=== PATIENT | male | born 1955 | race African-American/Black ===

== ENCOUNTER 2019-09-11 15:58 | Inpatient (IN) | payer MEDICAID ==
[~2019-09-11] VITALS: Ht 182.9 cm; Wt 71.4 kg
[2019-09-11] MEDS ORDERED: NEURONTIN 300300 MG PO (16:02)
[2019-09-11 17:18] LABS: BASOPHILS 0 % (0-2); EOSINOPHILS 1.3 % (0-7); HEMATOCRIT 24.4 % (42.0-54.0); IMMATURE GRANULOCYTES 0.3 % (0-5); LYMPHOCYTES 13.4 % (15-50); MCH 26.3 pg (26.0-34.0); MCHC 29.5 g/dL (31.0-37.0); MCV 89.1 fL (80.0-100.0); MONOCYTES 10.7 % (2-11); NEUTROPHILS 74.3 % (40-80); PLATELET COUNT 87 10x3/uL (130-400); RBC 2.74 10x6/uL (4.20-6.10); RDW 22.8 % (11.5-14.5)
[2019-09-11 17:40] LABS: ANION GAP 8.1 mmol/L (8-16); CALCIUM 7.4 mg/dL (8.5-10.1); CREATININE - SERUM 1.3 mg/dL (0.6-1.3); POTASSIUM - SERUM 4.1 mmol/L (3.5-5.1)
[2019-09-11 17:47] LABS: ALBUMIN 1.6 g/dL (3.4-5.0); BILIRUBIN - TOTAL 1.19 mg/dL (0.2-1.3); PROTEIN - SERUM 7.6 g/dL (6.4-8.2)
[2019-09-11 17:55] LABS: HEMOGLOBIN 7.2 g/dL (13.5-17.5)
--- NOTE | 2019-09-11 18:19 | NUR ---
RECEIVED CALL FROM ROMEL CLEMENTS IN ER, TOOK REPORT, PT HAS RT KNEE THAT IS SWOLLEN, 50ML TAKEN FROM KNEE AT [facility] BEFORE TRANSFERRED TO [facility]. PT WAS GIVEN 4MG OF MORPHINE IN ER, NO PAIN MEDS ORDERED FOR FLOOR, ASKED RN TO HAVE MEDS ORDERED FOR PAIN CONTROL BEFORE PT ARRIVES. PT HAS MIDLINE IN RT UPPER ARM PLACED BY [facility]. ASSUME PT CARE.
--- NOTE | 2019-09-11 18:41 | NUR ---
BLOOD NOT READY WHILE PT IN ED
[2019-09-11 18:51] LABS: PLATELET ESTIMATE DECREASED
--- NOTE | 2019-09-11 19:12 | NUR ---
TELEPHONE ORDER TO TRANSFUSE [address] BAH.
--- NOTE | 2019-09-11 22:03 | NUR ---
PT MIDLINE WILL NOT FLUSH OR GET BLOOD RETURN ATTEMPTED TO RESTICK PT FOR BLOOD TRANSFUSION PT JERKED BOTH TIMES FOR MYSELF AND RN WHO TRIED TO RESITE IV THEN PT STATED WE ARE NOT STICKING HIM AGAIN. TOOK BLOOD BACK TO LAB AND WILL CONSULT VASCULAR ACCCESS NURSE
--- NOTE | 2019-09-11 22:45 | NUR ---
PT LYING IN BED WITH EYES CLOSED, EASILY AWAKENED. ASKED PT IF I CAN TRY TO RESITE HIS IV AGAIN IN WHICH HE DECLINED. REMINDED PT THAT THIS IS HOW HIS PAIN MEDICATION IS ADMINISTERED. PT THEN STATED MIDLINE IS WORKING FINE AND HAS BEEN WORKING UNTIL HE GOT TO FLOOR. EXPLAINED TO PT THAT I WAS TOLD IN REPORT IV IS POSITIONAL AND AFTER ABX HAD GONE IN IV FINALLY QUIT WORKING. PT CONTINUED TO ARGUE, UNABLE TO CONVINCE PT OF IV ACCESS NEEDED. CONTINUE WITH PLAN OF CARE
[2019-09-12] VITALS: BP 110/68
--- NOTE | 2019-09-12 01:08 | NUR ---
I have reviewed this patient and I concur with the Shift Assessment completed by the Licensed Practical Nurse today this shift.
--- NOTE | 2019-09-12 01:15 | NUR ---
PT REQUESTING A CUP OF COFFEE. I EXPLAINED THAT PER ER DR NOTE THAT HE IS NPO AFTER MIDNIGHT FOR POSSIBLE SURGERY THIS AM WITH DR WEST. PT STATES HE WILL NOT BE HAVING SURGERY TODAY EVEN IF COMES IN TO SPEAK WITH HIM ABOUT IT AND INSISTING THAT I GIVE HIM A CUP OF COFFEE. I EXPLAINED THE IMPORTANCE OF THE POSSIBLE SURGERY AND NOTE. PT STATED THAT HE UNDERSTANDS BUT HE WILL NOT BE HAVING SURGERY TODAY. GAVE PT A CUP OF COFFEE. PT ASKING NOW FOR PAIN MEDICATION. I EXPLAINED THAT I WOULD HAVE TO START AN IV DUE TO HIS MIDLINE NOT WORKING. HE STATED I CAN TRY ONCE AND THAT IS IT. WILL ATTEMPT IV AND FALLOW UP.
--- NOTE | 2019-09-12 02:35 | NUR ---
IV RESTARTED RT FA 22G. WILL START BLOOD AND CLOSELY MONITOR.
--- NOTE | 2019-09-12 03:03 | NUR ---
ONE UNIT OF PRBC STARTED. PT STABLE. VITALS STABLE. WILL MONITOR CLOSELY AND FALLOW UP. CALL LIGHT IN REACH. BED LOWERED AND LOCKED. BED RAILS UPX2.
--- NOTE | 2019-09-12 03:30 | NUR ---
IV INFULTRATED. ATTEMPTED X5 TIMES. TO RESTART IV. WILL WAIT FOR VASCULAR ACCESS NURSE. WILL FALLOW UP.
[2019-09-12 05:05] VITALS: BP 100/58; BMI 21.3
[2019-09-12 08:30] VITALS: BP 130/57
--- NOTE | 2019-09-12 09:20 | NUR ---
PT BECAME UPSET AFTER HE ASKED FOR PAIN MEDICATION AND I WAS DRAWING UP 0.5 OF ORDERED PAIN MEDICATION PT STATED THAT WAS NOT ENOUGH AND IT WOULD NOT HELP WITH HIS PAIN. EXPLAINED OT PT THAT IS ALL I HAVE ORDERED AT THIS TIME AND PT STATED HE WANTED TO SPEAK TO THE DOCTOR TO GET MORE. ADVISED HIM SHAMAR JOVEL WAS IN THIS MORNING AND HOSPITALIST SHOULD BE ,AKING ROUNDS SOON. PT THEN STATED HE WANTED TO LEAVE THAT WE WERE NOT DOING ANYTHING FOR HIM. ADVISED PT TO LET ABX FINISH AND TALK TO DOCOTR FIRST BEFORE MAKING ANY DECISIONS. CL IN REACH CONTINUE WITH PLAN OF CARE
--- NOTE | 2019-09-12 09:47 | NUR ---
PT REFUSED TO LET LAB DRAW ANY BLOOD. PT IS SO FAR BEING NON COMPLIANT WILL TRY AND ADMINISTER BLOOD ORDERED FROM YESTERDAY. CONTINUE WITH PLAN OF CARE
[2019-09-12 11:10] VITALS: Ht 182.9 cm; Wt 71.4 kg
--- NOTE | 2019-09-12 11:52 | NUR ---
PT REFUSED LAB WORK AGAIN, CALLED SHAMAR NURSE PRACTITIONER AND RELAYED MESSAGE, RECEIVED CALL FROM MRI AT [facility] TIME AND WAS ADVISED PT HAS A BULLET IN THE AREA AND ARE UNABLE TO FOLLOW THROUGH. TOLD NURSE PRACTIONER ABOUT PT WANTING PAIN MEDICATION INCREASED BUT REFUSING LAB WORK AND IV'S WELL GOING TO SURGERY. SPOKE TO MED ALVAREZ ABOUT IT AND WAS TOLD TO INCREASE PT PAIN MEDICATION TO 1MG. SPOKE TO SHAMAR AGAIN AND WAS ADVISED NOT TO INCREASE MEDS. CONTINUE WITH PLAN OF CARE
--- NOTE | 2019-09-12 12:06 | NUR ---
PATIENT BANGING ON BED STATING HE WANTS HIS BLOOD. ADVISED PT THAT PER NOTES HIS BLOOD WAS ADMNISTERED ABOUT 2AM PT STATED HIS IV INFILTRATED AND THAT HE DID NOT RECEIVE BLOOD LAST NIGHT SO I TOLD PT THAT IF HE ALLOWED LAB TO DRAW HIS BLOOD SO I CAN SEE WHERE HIS LEVELS ARE THEN I WOULD BE MORE THAN HAPPY TO ADMINISTER ANOTHER UNIT OF BLOOD. PT THEN STATED HE WANTED DOCUMENTS FROM LAST NIGHT WHERE HIS BLOOD WAS DRAWN. ADVISED HIM HE WILL GET ALL DOCUMENTS UPON DC. CONTINUE WITH PLAN OF CARE
--- NOTE | 2019-09-12 12:06 | NUR ---
PT HAD BULLET IN R KNEE. PER DR NATION HE DOESN'T FEEL COMFORTABLE WITH US DOING AN MRI ON HIM. SHAMAR YOUNG NOTIFIED WELL PATIENT'S NURSE CHUCK. EXAM CANCELLED
--- NOTE | 2019-09-12 12:36 | NUR ---
DIXIE WITH LAB CAME TO DRAW LABS PT REFUSED AFTER TALKING TO PT FOR A BIT PT ALLOWED DIXIE ONE TRY, HE WAS UNSUCCESSFUL AND SENT CAROL FROM LAB. PT GOT UPSET AND TOLD MYSELF AND MERCURY WASHER WE CAN GO DRINK HIS URINE. CAROL WAS ABLE TO OBTAIN BLOOD. CONTINUE WITH PLAN OF CARE
[2019-09-12 13:06] LABS: BASOPHILS 0 % (0-2); EOSINOPHILS 1.1 % (0-7); HEMATOCRIT 22.9 % (42.0-54.0); LYMPHOCYTES 12.7 % (15-50); MCH 26.3 pg (26.0-34.0); MCHC 29.3 g/dL (31.0-37.0); MCV 89.8 fL (80.0-100.0); MONOCYTES 9.1 % (2-11); NEUTROPHILS 77.1 % (40-80); RBC 2.55 10x6/uL (4.20-6.10); RDW 22.5 % (11.5-14.5); WBC 2.8 10x3/uL (4.8-10.8)
[2019-09-12 13:13] LABS: HEMOGLOBIN 6.7 g/dL (13.5-17.5); PLATELET COUNT 49 10x3/uL (130-400)
[2019-09-12 13:19] LABS: % SATURATION 14 % (15-55); IRON 21 ug/dl (35-150); TOTAL IRON BIND CAPACITY 145 ug/dl (260-445); UNSAT IRON BIND CAPACITY 124 ug/dl (150-375)
[2019-09-12 13:23] VITALS: BP 96/63
[2019-09-12 13:23] LABS: ALBUMIN 1.7 g/dL (3.4-5.0); ANION GAP 8.8 mmol/L (8-16); BILIRUBIN - TOTAL 1.22 mg/dL (0.2-1.3); C-REACTIVE PROTEIN 8.7 mg/dL (0.0-0.9); CALCIUM 7.3 mg/dL (8.5-10.1); CARBON DIOXIDE 25.6 mmol/L (21.0-32.0); CREATININE - SERUM 1.1 mg/dL (0.6-1.3); POTASSIUM - SERUM 4.4 mmol/L (3.5-5.1); PROTEIN - SERUM 7.3 g/dL (6.4-8.2)
[2019-09-12 13:30] LABS: PLATELET ESTIMATE DECREASED
--- NOTE | 2019-09-12 13:33 | NUR ---
ADMINISTERED PT PAIN MEDICATION PT STATED I HAD NOT GIVEN HIM PAIN MEDICATION AND THAT I WAS A LIAR. STATED HE WANTED TO TALK TO THE DOCTOR AND THAT I HAD NOT GIVEN HIM ANY PAIN MEDICATION TOO EARLY TO GIVE HIM ANYTHING ELSE. WILL NOT READMINISTER PAIN MEDS TO MAKE HIM HAPPY. PT TO HAVE 2 UNITS OF BLOOD HGB IS 6.7 AND PLATELETS IS 49
[2019-09-12 13:46] LABS: MAGNESIUM - SERUM 1.9 mg/dL (1.8-2.4)
[2019-09-12 13:56] LABS: ERYTHROCYTE SEDIMENTATION RATE 56 mm/hr (0-20)
--- NOTE | 2019-09-12 14:10 | NUR ---
WENT OT START PT BLOOD AND PT IV LEAKED EVERYWHERE. PT STARTYED CURSING AT ME AGAIN AND TELLING ME IM AN INCOMPETENT NURSE. APOLOGIZED TO PT AND EXPLAINED THAT THIS DOES HAPPEN FROM TIME TO TIME, CALLED AND LEFT MESSAGE FOR VASCULAR ACCESS NURSE. CONTINUE WITH PLAN OF CARE
[2019-09-12 14:44] LABS: UDS - AMPHET NEGATIVE QUAL (NEGATIVE); UDS - BARB NEGATIVE QUAL (NEGATIVE); UDS - BENZO NEGATIVE QUAL (NEGATIVE); UDS - COCAINE NEGATIVE QUAL (NEGATIVE); UDS - OPIATE POSITIVE QUAL (NEGATIVE); UDS - PCP NEGATIVE QUAL (NEGATIVE); UDS - THC NEGATIVE QUAL (NEGATIVE)
[2019-09-12 14:54] LABS: BILIRUBIN NEGATIVE (NEGATIVE); GLUCOSE NEGATIVE (NEGATIVE); KETONE NEGATIVE (NEGATIVE); NITRITE NEGATIVE (NEGATIVE); UROBILINOGEN NORMAL (NORMAL)
--- NOTE | 2019-09-12 15:02 | NUR ---
PT HAS IV ACCESS IN RT FA OBTAINED BY VASCULAR ACCESS NURSE. PT BLOOD RESTARTED CONTINUE WITH PLAN OF CARE
[2019-09-12 17:17] LABS: INR 1.62 (0.85-1.17)
--- NOTE | 2019-09-12 18:41 | NUR ---
PER DR VARNER ADMINISTER 1TIME DOSE OF LACTULOSE NOW, PT STATED HE WAS NOT TAKING MEDICAINE UNTIL HE WAS GIVEN PAIN MEDICATION. PAUSED BLOOD AND FLUSHED WITH SALINE THEN ADMINISTERED PRN PAIN MEDICATION THEN RESTARTED BLOOD. CONTINUE WITH PLAN OF CARE
[2019-09-12 20:00] VITALS: BP 127/68
--- NOTE | 2019-09-12 20:00 | NUR ---
ALERT RESTING IN BED BLOOD INFUSING WITHOUT DIFFICULTY, DENIES NEEDS AT THIS TIME, SEE SHIFT ASSESSMENT CALL LIGHT IN REACH
[2019-09-13] VITALS: BP 119/66
--- NOTE | 2019-09-13 01:45 | NUR ---
REQUESTING PAIN MEDICATION, INFORMED HAD JUST HAD IT AT 1145 AND WAS EVERY 4 HRS, PT BECAME CHERYL AGITATES STATING THAT DR SAID HE WAS GOING TO INCREASE MY PAIN MEDICATION AND YOU DIDNT GIVE ME ENOUGH. INFORMED THAT THERE WAS NO ORDER FOR ANY CHANGE IN PAIN MEDICATION AND I WOULD GIVE HIS MEDICATION SOON I COULD. DEMANDING THE DR BE CALLED TO GET HIS PAIN MEDICATION INCREASED. DR BRETT NAJERA
--- NOTE | 2019-09-13 02:41 | NUR ---
CALL BACK RECIEVED FROM DR WEST, STATES NO INCREASE IN PAIN MEDICATIONS BECAUSE HE KEEPS REFUSING LABS MRI AND US.
[2019-09-13 04:00] VITALS: BP 116/59
--- NOTE | 2019-09-13 07:59 | NUR ---
ALERT AND ORIENTED. LUNGS CLEAR BILATERALLY. HEART SOUNDS S1 AND S2 HEARD IN ALL RANGEL. SKIN INTACT WITHOUT REDNESS. RIGHT KNEE SWOLLEN. WARM PACK PLACED ON KNEE PER REQUEST. PRN PAIN MEDICATION GIVEN PER REQUEST. DENIES FURTHER NEEDS. BED LOW. CALL MANCIA AND PERSONAL ITEMS IN REACH. WILL CONTINUE TO MONITOR.
[2019-09-13 08:09] VITALS: BP 114/58
--- NOTE | 2019-09-13 08:27 | NUR ---
PATIENT PREVIOUSLY REFUSED AM LABS BUT STATES HE WILL GET THEM NOW. LAB CALLED AND STATES WILL COME DRAW LABS. PATIENT REQUESTING TO EAT. NPO FOR US OF ABD TODAY. STATES WILL GET US TOMORROW. ALREADY REFUSED US YESTERDAY. MED HAYES NOTIFIED. STATES "KEEP HIM NPO FOR NOW." PATIENT INFORMED. UNHAPPY BUT WILLING TO COOPERATE FOR TIME BEING.
--- NOTE | 2019-09-13 08:57 | NUR ---
PATIENT STATES "I WANT TO GO BACK WHERE I CAME FROM. Y'ALL ARE GIVING ME THE RUN AROUND." EXPLAINED TO PATIENT THAT HE IS HAVING US TODAY AND THAT IS REASON FOR NPO STATUS. STATES AGAIN THAT WANTS TO HAVE US TOMORROW. ALSO EXPLAINED TO PATIENT THAT IS HAVING PROCEDURE TOMORROW. PATIENT CONTINUES TO STATE WE ARE GIVING HIM "THE RUN AROUND." AND THAT HE WANTS TO LEAVE. WILL NOTIFY MED HAYES.
[2019-09-13 09:04] LABS: MCH 26.3 pg (26.0-34.0); RDW 22.1 % (11.5-14.5); WBC 2.6 10x3/uL (4.8-10.8)
[2019-09-13 09:08] LABS: ALBUMIN 1.8 g/dL (3.4-5.0); ALKALINE PHOSPHATASE 118 U/L (30-120); ALT (SGPT) 18 U/L (10-68); BILIRUBIN - TOTAL 2.73 mg/dL (0.2-1.3); CALC OSMOLALITY 276 mosm/kg (275-300); CALCIUM 7.6 mg/dL (8.5-10.1); CARBON DIOXIDE 25.8 mmol/L (21.0-32.0); CHLORIDE - SERUM 108 mmol/L (98-107); CREATININE - SERUM 0.9 mg/dL (0.6-1.3); GLUCOSE 88 mg/dL (74-106); POTASSIUM - SERUM 4.5 mmol/L (3.5-5.1); PROTEIN - SERUM 8.1 g/dL (6.4-8.2); SODIUM 138 mmol/L (136-145); UREA NITROGEN 17 mg/dL (7-18); eGFR NON AFRICAN AMERICAN > 90 mL/min (90-120)
[2019-09-13 09:09] LABS: HEMATOCRIT 27.7 % (42.0-54.0); HEMOGLOBIN 8.3 g/dL (13.5-17.5); MCV 87.7 fL (80.0-100.0); PLATELET COUNT 79 10x3/uL (130-400); RBC 3.16 10x6/uL (4.20-6.10)
[2019-09-13 09:27] LABS: MAGNESIUM - SERUM 1.6 mg/dL (1.8-2.4)
--- NOTE | 2019-09-13 09:27 | NUR ---
SPOKE WITH MED HAYES TO NOTIFY THAT PATIENT WANTS TO LEAVE. STATES WILL TAKE CARE OF.
[2019-09-13 09:30] LABS: LYMPHOCYTES 11 % (15-50); MONOCYTES 1 % (2-11); NEUTROPHILS 88 % (40-80); PLATELET ESTIMATE DECREASED; SCHISTOCYTES OCC; TEAR DROP CELLS OCC
[2019-09-13 09:31] LABS: ROULEAUX OCC
--- NOTE | 2019-09-13 10:40 | NUR ---
PATIENT REFUSING TO SIGN CONSENTS FOR PROCEDURE TOMORROW UNTIL AFTER EATING. PATIENT NPO. PATIENT WITH INCREASED AGITATION. RAUL ALARM PLACED ON BED D/T FALL SCORE NOW AT THREE FOR NARCOTICS, WEAKNESS, AND AGITATION.
--- NOTE | 2019-09-13 10:54 | NUR ---
PATIENT NOW STATES WILL SIGN CONSENTS. CONSENTS OBTAINED FOR PROCEDURE TOMORROW. PATIENT REQUESTED TO CALL SISTER. SISTER CALLED TWICE WITH NO ANSWER.
--- NOTE | 2019-09-13 12:37 | NUR ---
SITTING IN BED EATING LUNCH. WILL CONTINUE TO MONITOR.
[2019-09-13 12:54] VITALS: BP 141/90
--- NOTE | 2019-09-13 13:21 | NUR ---
MED HAYES NOTIFIED OF AMMONIA [address] AND THAT PATIENT JUST RECEIVED 0900 DOSE LACTULOSE D/T NO LONGER NPO. STATES "OK THANK YOU."
--- NOTE | 2019-09-13 20:00 | NUR ---
ALERT RESTING IN BED, C/O PAIN TO RIGHT KNEE, DILAUDID ORDERED GIVEN, SEE ASSESSMENT, CALL LIGHT IN REACH
[2019-09-13 21:15] VITALS: BP 104/61
[2019-09-14] VITALS (11 sets, daily range): BP systolic 105–135; BP diastolic 51–80
--- NOTE | 2019-09-14 02:00 | NUR ---
SECURITY CALLED TO TALK WITH PT WHO IS YELLING AND BANGING CALL LIGHT ON SIDE OF BED AND WILL NOT LISTEN THIS NURSE ATTEMTS TO EXPLAIN THAT WE WILL GLADLY MEET HIS NEEDS BUT NURSE OR WEIGHT LOSS CONSULTANT CAN NOT BE IN ROOM ALL THE TIME
[2019-09-14 06:46] LABS: HEMATOCRIT 27.7 % (42.0-54.0); HEMOGLOBIN 8.4 g/dL (13.5-17.5); MCH 26.6 pg (26.0-34.0); MCHC 30.3 g/dL (31.0-37.0); MCV 87.7 fL (80.0-100.0); RBC 3.16 10x6/uL (4.20-6.10); RDW 21.7 % (11.5-14.5); WBC 2.8 10x3/uL (4.8-10.8)
[2019-09-14 06:55] LABS: PLATELET COUNT 101 10x3/uL (130-400)
[2019-09-14 06:57] LABS: ALBUMIN 1.7 g/dL (3.4-5.0); ALKALINE PHOSPHATASE 121 U/L (30-120); ALT (SGPT) 18 U/L (10-68); BILIRUBIN - TOTAL 1.56 mg/dL (0.2-1.3); CALC OSMOLALITY 273 mosm/kg (275-300); CALCIUM 7.5 mg/dL (8.5-10.1); CARBON DIOXIDE 27.4 mmol/L (21.0-32.0); CHLORIDE - SERUM 107 mmol/L (98-107); GLUCOSE 89 mg/dL (74-106); MAGNESIUM - SERUM 1.7 mg/dL (1.8-2.4); POTASSIUM - SERUM 4.2 mmol/L (3.5-5.1); SODIUM 137 mmol/L (136-145); UREA NITROGEN 16 mg/dL (7-18); eGFR NON AFRICAN AMERICAN 80 mL/min (90-120)
--- NOTE | 2019-09-14 07:39 | NUR ---
ALERT AND ORIENTED. LUNGS CLEAR BILATERALLY. HEART SOUNDS S1 AND S2 HEARD IN ALL RANGEL. BOWEL SOUNDS ACTIVE X 4. RIGHT KNEE SWOLLEN. SCHEDULED I/D RIGHT LEG TODAY. REQUESTED TO BE COVERED UP "PROPERLY." BED LINENS STRAIGHTENED PER REQUEST. REQUESTED SISTER TO BE CALLED. CALLED BUT NO ANSWER. BED LOW. CALL MANCIA AND PERSONAL ITEMS IN REACH. FALL PRECAUTIONS IN PLACE. WILL CONTINUE TO MONITOR.
[2019-09-14 07:54] LABS: BASOPHILS 2 % (0-2); LYMPHOCYTES 8 % (15-50); MONOCYTES 3 % (2-11); NEUTROPHILS 87 % (40-80); PLATELET ESTIMATE NORMAL; SCHISTOCYTES OCC; TEAR DROP CELLS OCC
--- NOTE | 2019-09-14 10:00 | NUR ---
PREOP MEDICATIONS GIVEN AND EKG PERFORMED PER ORDER. COPY ON CHART.
[2019-09-14 10:10] LABS: HEPATITIS C ANTIBODY >11.0 S/CO RAT (0.0-0.9)
--- NOTE | 2019-09-14 10:30 | NUR ---
PATIENT TAKEN FOR PROCEDURE.
--- NOTE | 2019-09-14 11:18 | MORECARE ---
CASE MANAGEMENT DISCHARGE SUMMARY PATIENT: MARLEY VALLADARES UNIT: [id number] ADM DATE: 09/11/19 AGE: 64 : 59 SEX: M ROOM/BED: D.2227 AUTHOR: ABIGAIL WATKINS PHYSICIAN: REFERRING PHYSICIAN: APURVA BAH MD DATE OF SERVICE: 09/14/19 Discharge Plan Patient Name: MARLEY VALLADARES [facility] [facility] 1955 Planned Disposition: [facility] Facility Anticipated Discharge Date: Discharge Date: Expected LOS: Initial Reviewer: [email or web address] Initial Review Date: 09/11/2019 Generated: 09/14/19 12:17 pm DCPIA - Discharge Planning Initial Assessment Updated by [id number]: Jamila August on 09/14/19 11:13 am * Is the patient Alert and Oriented? Yes * How many steps to enter\exit or inside your home? 3/0 * PCP No PCP * Pharmacy [facility] in [facility] * Preadmission Environment Home Alone * ADLs Independent * Equipment None * List name and contact numbers for known caregivers / representatives who currently or will assist patient after discharge: Aditi Alegre [facility] [phone] * Verbal permission to speak to the caregivers and representatives has been obtained from the patient. Yes * Community resources currently utilized None * Additional services required to return to the preadmission environment? No * Can the patient safely return to the preadmission environment? Yes * Has this patient been hospitalized within the prior 30 days at any hospital? Yes Patient Name: MARLEY VALLADARES Page [id number] at 1118 All edits/amendments must be made on the electronic document DICTATION DATE: 09/14/19 1117 SOCIOLOGY INSTRUCTOR: KIP 09/14/19 1117 RPT#: [id number] DC DATE: STATUS: ADM IN [facility] [address] [place] [address] END OF REPORT
--- NOTE | 2019-09-14 11:27 | MORECARE ---
CASE MANAGEMENT DISCHARGE SUMMARY PATIENT: MARLEY VALLADARES UNIT: [id number] ADM DATE: 09/11/19 AGE: 64 : 59 SEX: M ROOM/BED: D.2227 AUTHOR: ROLANDDOC PHYSICIAN: REFERRING PHYSICIAN: APURVA BAH MD DATE OF SERVICE: 09/14/19 Discharge Plan Patient Name: MARLEY VALLADARES Facility: [facility]:[place] : 1955 Planned Disposition: [facility] Facility Anticipated Discharge Date: Discharge Date: Expected LOS: Initial Reviewer: [email or web address] Initial Review Date: 09/11/2019 Generated: 09/14/19 12:26 pm Comments DCP- Discharge Planning Updated by [id number]: Jamila Auguts on 09/14/19 10:[address] Patient Name: MARLEY VALLADARES Admission Status: ER Accout number: [id number] Admission Date: 09-11-2019 : 1955 Admission Diagnosis: Attending: APURVA BAH Current LOS: 3 Anticipated DC Date: Planned Disposition: [facility] Discharge Planning Comments: CM met with patient to discuss discharge planning/needs. He was transferred from [facility]. He states that he was in [facility] for IV antibiotics after leaving the hospital last time and would like to return. He does have an aide that comes on weekend from [facility]. He does not have any equipment at home. I spoke with German at [facility] and German states the patient has [place] Medicaid and does not have any rehab benefits. States that they will be unable to take him back. States the hospital had paid them to take him for 3 weeks for IV antibiotics. States because of his prior history of drug abuse, they would not send him home with a PICC line. I attempted to call his sister, Aditi, several times today at [phone] and she did not answer and her mailbox is full so I was unable to leave a message. I do not see how he will be able to get home health without a PCP either. CM will continue to follow and assist with discharge planning/needs. Blockmason: Jamila August DCPIA - Discharge Planning Initial Assessment Updated by [email or web address]: Jamila August on 09/14/19 11:13 am * Is the patient Alert and Oriented? Yes * How many steps to enter\exit or inside your home? 3/0 * PCP No PCP * Pharmacy [facility] in [facility] * Preadmission Environment Home Alone * ADLs Independent * Equipment None * List name and contact numbers for known caregivers / representatives who currently or will assist patient after discharge: Aditi Alegre - [facility] [phone] * Verbal permission to speak to the caregivers and representatives has been obtained from the patient. Yes * Community resources currently utilized None * Additional services required to return to the preadmission environment? No * Can the patient safely return to the preadmission environment? Yes * Has this patient been hospitalized within the prior 30 days at any hospital? Yes Coverage Notice Reviewer: [email or web address] - Jamila August Notice Issued Date-Time: 09/14/2019 11:24 Notice Type: Patient Choice Letter Notice Delivered To: Patient Relationship to Patient: Self Gas Furnace Installer Name: Delivery Method: - Melanie Days: Prior Verbal Notification: Recipient Understood Notice: Recipient Signature: Med Rec Note Co-signed by Attending: Coverage Notice Comment: Last DP export: 09/14/19 10:18 a Patient Name: MARLEY VALLADARES Page [id number] at 1127 All edits/amendments must be made on the electronic document DICTATION DATE: 09/14/19 112 ASTROCHEMIST: KIP 09/14/19 1126 RPT#: [id number] DC DATE: STATUS: ADM IN [facility] [address] [place] [address] END OF REPORT
--- NOTE | 2019-09-14 11:58 | NUR ---
VERY POOR SKIN INTEGRITY NOTED TO LOWER EXTREMITIES. SKIN IS PEELING AND FLAKING. THERE IS A NOTEABLE AMOUNT OF SKIN FLAKES ON PT BEDDING.
--- NOTE | 2019-09-14 12:20 | NUR ---
PATIENT RETURNED FROM PROCEDURE. VITALS STABLE. PATIENT SLEEPING. WILL CONTINUE TO MONITOR.
--- NOTE | 2019-09-14 13:34 | NUR ---
RESTING IN BED. VITALS REMAIN STABLE. WILL CONTINUE TO MONITOR.
--- NOTE | 2019-09-14 14:53 | NUR ---
RESTING IN BED. VITALS REMAIN STABLE. WILL CONTINUE TO MONITOR.
--- NOTE | 2019-09-14 15:22 | MORECARE ---
CASE MANAGEMENT DISCHARGE SUMMARY PATIENT: MARLEY VALLADARES UNIT: [id number] ADM DATE: 09/11/19 AGE: 64 : 59 SEX: M ROOM/BED: D.2227 AUTHOR: ABIGAIL WATKINS PHYSICIAN: REFERRING PHYSICIAN: APURVA BAH MD DATE OF SERVICE: 09/14/19 Discharge Plan Patient Name: MARLEY VALLADARES Facility[facility]:[place] : 1955 Planned Disposition: Assisted Facility Anticipated Discharge Date: Discharge Date: Expected LOS: Initial Reviewer: [email or web address] Initial Review Date: 09/11/2019 Generated: 09/14/19 4:22 pm Comments DCP- Discharge Planning Updated by [email or web address]: Emilee Tracy on 09/14/19 2:[address] PATIENT WENT TO THE OR FOR ARTHROSCOPIC I&D OF THE RIGHT KNEE WITH WASHING. RETURNED AT 1220. CM TO THE BEDSIDE AT 1430. THE PATIENT GAVE PERMISSION TO PROCEED WITH ASSESSMENT. HE STATES HIS SISTER, ADITI, HAD JUST CALLED. CM CONFIRMED THE NUMBER WHICH HE STATES IS CORRECT ON THE FACE SHEET. GAVE PERMISSION TO SPEAK WITH HER. HE STATED HE HAD NO OTHER FAMILY. WHEN ASK HOW HE CAME TO BE IN [place], STATED HIS SISTER. BUT HAD STATED EARLIER HIS SISTER, ADITI, LIVED IN [place]. HE GAVE ANOTHER NAME, ?? EVANGELINA LAU. NOW STATES SHE LIVES IN [place]. HE WAS NOT A THEREFORE NO VA BENEFITS. HE WISHES TO RETURN TO THE PREVIOUS FACILITY. CM INFORMED HIM THEY DID NOT ACCEPT HIM HE HAS NO BENEFIT/ HAS UTILIZED ALL OF HIS MEDICAID DAYS. HIS ANSWERS ARE SLURRED. HE KEPT DRIFITING OFF DURING THE ASSESSMENT. THE PATIENT WAS ALSO MEDICATED W/ DILAUDID FOR PAIN DURING INTERVIEW. MD NOTE STATES PLAN FOR 6 WEEKS OF IVAB THERAPY. CM WILL NEED TO REVISIT. TELEPHONE CALL TO HIS SISTER, ADITI, AND RECEIVED AN ANSWER. SHE STATES SHE HAD SPOKEN WITH HIM. SHE CONFIRMS HE WAS NOT IN THE SERVICES. SHE STATES HE HAS A PRIMARY MD, DR BUCK, IN [facility]. SHE DOES NOT KNOW HIS NUMBER BUT STATES THE PATIENT HAS HIS CARD. PATIENT UTILIZES [facility] [facility] IN [place]. THE SISTER STATES THEY HAVE A HOME IN [place] AND HE BECAME ILL WHILE THEY WERE VISITING. CM TO FOLLOW. DCP- Discharge Planning Updated by [id number]: Jamila August on 09/14/19 10:[address] Patient Name: MARLEY VALLADARES Admission Status: ER Accout number: [id number] Admission Date: 09-11-2019 : 1955 Admission Diagnosis: Attending: APURVA BAH Current LOS: 3 Anticipated DC Date: Planned Disposition: Assisted Facility Primary Insurance: [employer] Discharge Planning Comments: CM met with patient to discuss discharge planning/needs. He was transferred from [facility]. He states that [facility] for IV antibiotics after leaving the hospital last time and would like to return. He does have an aide that comes on weekend from [facility]. He does not have any equipment at home. I spoke with German at [facility] and German states the patient has [place] Medicaid and does not have any rehab benefits. States that they will be unable to take him back. States the hospital had paid them to take him for 3 weeks for IV antibiotics. States because of his prior history of drug abuse, they would not send him home with a PICC line. I attempted to call his sister, Aditi, several times today at [phone] and she did not answer and her mailbox is full so I was unable to leave a message. I do not see how he will be able to get home health without a PCP either. CM will continue to follow and assist with discharge planning/needs. Vinyl Installer: Jamila Mata DCPIA - Discharge Planning Initial Assessment Updated by [id number]: Jamila August on 09/14/19 11:13 am * Is the patient Alert and Oriented? Yes * How many steps to enter\exit or inside your home? 3/0 * PCP No PCP * Pharmacy [facility] in [facility] * Preadmission Environment Home Alone * ADLs Independent * Equipment None * List name and contact numbers for known caregivers / representatives who currently or will assist patient after discharge: Aditi Alegre - sister - [phone] * Verbal permission to speak to the caregivers and representatives has been obtained from the patient. Yes * Community resources currently utilized None * Additional services required to return to the preadmission environment? No * Can the patient safely return to the preadmission environment? Yes * Has this patient been hospitalized within the prior 30 days at any hospital? Yes Coverage Notice Reviewer: [email or web address] George August Notice Issued Date-Time: 09/14/2019 11:24 Notice Type: Patient Choice Letter Notice Delivered To: Patient Relationship to Patient: Self Tub Puller Name: Delivery Method: HAND - Hand Delivered Melanie Days: Prior Verbal Notification: Recipient Understood Notice: Yes Recipient Signature: Yes Med Rec Note Co-signed by Attending: [facility]age [facility] Last DP export: 09/14/19 10:27 a Patient Name: MARLEY VALLADARES Page 00994 at 1522 All edits/amendments must be made on the electronic document DICTATION DATE: 09/14/19 1522 TOOL PROFILING MACHINE SET UP OPERATOR: KIP 09/14/19 1522 RPT#: [id number] DC DATE: STATUS: ADM IN [facility] [address] [place] [address] END OF REPORT
--- NOTE | 2019-09-14 15:30 | MORECARE ---
CASE MANAGEMENT DISCHARGE SUMMARY PATIENT: MARLEY VALLADARES UNIT: [id number] ADM DATE: 09/11/19 AGE: 64 : 59 SEX: M ROOM/BED: D.2227 AUTHOR: ROLANDDOC PHYSICIAN: REFERRING PHYSICIAN: APURVA BAH MD DATE OF SERVICE: 09/14/19 Discharge Plan Patient Name: MARLEY VALLADARES Facility: [facility]:[place] : 1955 Planned Disposition: Chcf Facility Anticipated Discharge Date: Discharge Date: Expected LOS: Initial Reviewer: [id number] Initial Review Date: 09/11/2019 Generated: 09/14/19 4:30 pm Comments DCP- Discharge Planning Updated by [id number]: Emilee Tracy on 09/14/19 2:[address] TC [address] DR NOVOA IN [place], [place], AT [facility] . PHONE NUMBER [phone]. CM LEFT MESSAGE WITH [employer] FOR WELD LAY OUT WORKER, LISA BEYER. AWAITING CALL BACK. CM ADVISED MS BEYER. DCP- Discharge Planning Updated by [id number]: Emilee Tracy on 09/14/19 2:[address] PATIENT WENT TO THE OR FOR ARTHROSCOPIC I&D OF THE RIGHT KNEE WITH WASHING. RETURNED AT 1220. CM TO THE BEDSIDE AT 1430. THE PATIENT GAVE PERMISSION TO PROCEED WITH ASSESSMENT. HE STATES HIS SISTER, ADITI, HAD JUST CALLED. CM CONFIRMED THE NUMBER WHICH HE STATES IS CORRECT ON THE FACE SHEET. GAVE PERMISSION TO SPEAK WITH HER. HE STATED HE HAD NO OTHER FAMILY. WHEN ASK HOW HE CAME TO BE IN [place], STATED HIS SISTER. BUT HAD STATED EARLIER HIS SISTER, ADITI, LIVED IN [place]. HE GAVE ANOTHER NAME, ?? EVANGELINA LAU. NOW STATES SHE LIVES IN [place]. HE WAS NOT A THEREFORE NO VA BENEFITS. HE WISHES TO RETURN TO THE PREVIOUS FACILITY. CM INFORMED HIM THEY DID NOT ACCEPT HIM HE HAS NO BENEFIT/ HAS UTILIZED ALL OF HIS MEDICAID DAYS. HIS ANSWERS ARE SLURRED. HE KEPT DRIFITING OFF DURING THE ASSESSMENT. THE PATIENT WAS ALSO MEDICATED W/ DILAUDID FOR PAIN DURING INTERVIEW. NOTE STATES PLAN FOR 6 WEEKS OF IVAB THERAPY. CM WILL NEED TO REVISIT. TELEPHONE CALL TO HIS SISTER, ADITI, AND RECEIVED AN ANSWER. SHE STATES SHE HAD SPOKEN WITH HIM. SHE CONFIRMS HE WAS NOT IN THE SERVICES. SHE STATES HE HAS A PRIMARY MD, DR BUCK, IN [facility]. SHE DOES NOT KNOW HIS NUMBER BUT STATES THE PATIENT HAS HIS CARD. PATIENT UTILIZES [facility] IN [place]. THE SISTER STATES THEY HAVE A HOME IN [place] AND HE BECAME ILL WHILE THEY WERE VISITING. CM TO FOLLOW. DCP- Discharge Planning Updated by [id number]: Lisa Beyer on 09/14/19 10:[address] Patient Name: MARLEY VALLADARES Admission Status: ER Accout number: [id number] Admission Date: 09-11-2019 : 1955 Admission Diagnosis: Attending: APURVA BAH Current LOS: 3 Anticipated DC Date: Planned Disposition: Chcf Facility Primary Insurance: [facility] Discharge Planning Comments: CM met with patient to discuss discharge planning/needs. He was transferred from [facility]. He [facility] that [facility] for IV antibiotics after leaving the hospital last time and would like to return. He does have an aide that comes on weekend from [facility]. He does not have any equipment at home. I spoke with German at [facility] and German states the patient has [place] Medicaid and does not have any rehab benefits. States that they will be unable to take him back. States the hospital had paid them to take him for 3 weeks for IV antibiotics. States because of his prior history of drug abuse, they would not send him home with a PICC line. I attempted to call his sister, Aditi, several times today at [phone] and she did not answer and her mailbox is full so I was unable to leave a message. I do not see how he will be able to get home health without a PCP either. CM will continue to follow and assist with discharge planning/needs. Process Improvement Engineer: Lisa Beyer DCPIA - Discharge Planning Initial Assessment Updated by [id number]: Lisa Beyer on 09/14/19 11:13 am * Is the patient Alert and Oriented? Yes * How many steps to enter\exit or inside your home? 3/0 * PCP No PCP * Pharmacy [facility] in [facility] * Preadmission Environment Home Alone * ADLs Independent * Equipment None * List name and contact numbers for known caregivers / representatives who currently or will assist patient after discharge: Aditi Alegre - sister - [phone] * Verbal permission to speak to the caregivers and representatives has been obtained from the patient. Yes * Community resources currently utilized None * Additional services required to return to the preadmission environment? No * Can the patient safely return to the preadmission environment? Yes * Has this patient been hospitalized within the prior 30 days at any hospital? Yes Coverage Notice Reviewer: [id number] George Beyer Notice Issued Date-Time: 09/14/2019 11:24 Notice Type: Patient Choice Letter Notice Delivered To: Patient Relationship to Patient: Self Clothing Patternmaker Name: Delivery Method: HAND - Hand Delivered Melanie Days: Prior Verbal Notification: Recipient Understood Notice: Yes Recipient Signature: Yes Med Rec Note Co-signed by Attending: Coverage Notice Comment: [facility] in [facility] (they denied admission) Last DP export: 09/14/19 2:22 p Patient Name: MARLEY VALLADARES Page [phone] at 1530 All edits/amendments must be made on the electronic document DICTATION DATE: 09/14/19 1530 MONUMENT SETTER HELPER: KIP 09/14/19 1530 RPT#: [id number] DC DATE: STATUS: ADM IN [facility] [address] [place] [address] END OF REPORT
--- NOTE | 2019-09-14 15:39 | MORECARE ---
CASE MANAGEMENT DISCHARGE SUMMARY PATIENT: MARLEY VALLADARES UNIT: [id number] ADM DATE: 09/11/19 AGE: 64 : 59 SEX: M ROOM/BED: D.2227 AUTHOR: ROLANDDOC PHYSICIAN: REFERRING PHYSICIAN: APURVA BAH MD DATE OF SERVICE: 09/14/19 Discharge Plan Patient Name: MARLEY VALLADARES Facility: [facility]:[place] : 1955 Planned Disposition: Nursing Home Facility Anticipated Discharge Date: Discharge Date: Expected LOS: Initial Reviewer: [id number] Initial Review Date: 09/11/2019 Generated: 09/14/19 4:39 pm Comments DCP- Discharge Planning Updated by [id number]: Emilee Tracy on 09/14/19 2:[address] NOVOA IN [place], [place], AT [facility] . PHONE NUMBER [phone]. CM LEFT MESSAGE WITH CONTACT INFORMATION FOR MANAGER PLANNING, LISA BEYER. AWAITING CALL BACK. CM ADVISED MS BEYER. DCP- Discharge Planning Updated by [id number]: Emilee Tracy on 09/14/19 2:[address] PATIENT WENT TO THE OR FOR ARTHROSCOPIC I&D OF THE RIGHT KNEE WITH WASHING. RETURNED AT 1220. CM TO THE BEDSIDE AT 1430. THE PATIENT GAVE PERMISSION TO PROCEED WITH ASSESSMENT. HE STATES HIS SISTER, ADITI, HAD JUST CALLED. CM CONFIRMED THE NUMBER WHICH HE STATES IS CORRECT ON THE FACE SHEET. GAVE PERMISSION TO SPEAK WITH HER. HE STATED HE HAD NO OTHER FAMILY. WHEN ASK HOW HE CAME TO BE IN [place], STATED HIS SISTER. BUT HAD STATED EARLIER HIS SISTER, ADITI, LIVED IN [place]. HE GAVE ANOTHER NAME, ?? EVANGELINA LAU. NOW STATES SHE LIVES IN [place]. HE WAS NOT A THEREFORE NO VA BENEFITS. HE WISHES TO RETURN TO THE PREVIOUS FACILITY. CM INFORMED HIM THEY DID NOT ACCEPT HIM HE HAS NO BENEFIT/ HAS UTILIZED ALL OF HIS MEDICAID DAYS. HIS ANSWERS ARE SLURRED. HE KEPT DRIFITING OFF DURING THE ASSESSMENT. THE PATIENT WAS ALSO MEDICATED W/ DILAUDID FOR PAIN DURING INTERVIEW. NOTE STATES PLAN FOR 6 WEEKS OF IVAB THERAPY. CM WILL NEED TO REVISIT. TELEPHONE CALL TO HIS SISTER, ADITI, AND RECEIVED AN ANSWER. SHE STATES SHE HAD SPOKEN WITH HIM. SHE CONFIRMS HE WAS NOT IN THE SERVICES. SHE STATES HE HAS A PRIMARY MD, DR BUCK, IN [facility]. SHE DOES NOT KNOW HIS NUMBER BUT STATES THE PATIENT HAS HIS CARD. PATIENT UTILIZES [facility] AND [facility] IN [place]. THE SISTER STATES THEY HAVE A HOME IN [place] AND HE BECAME ILL WHILE THEY WERE VISITING. CM TO FOLLOW. DCP- Discharge Planning Updated by [email or web address]: Lisa Beyer on 09/14/19 10:[address] Patient Name: MARLEY VALLADARES Admission Status: ER Accout number: [id number] Admission Date: 09-11-2019 : 1955 Admission Diagnosis: Attending: APURVA BAH Current LOS: 3 Anticipated DC Date: Planned Disposition: Nursing Home Facility Primary Insurance: [employer] Discharge Planning Comments: CM met with patient to discuss discharge planning/needs. He was transferred from [facility]. He states that he was in [facility] for IV antibiotics after leaving the hospital last time and would like to return. He does have an aide that comes on weekend from [facility]. He does not have any equipment at home. I spoke with German at [facility] and German states the patient has [place] Medicaid and does not have any rehab benefits. States that they will be unable to take him back. States the hospital had paid them to take him for 3 weeks for IV antibiotics. States because of his prior history of drug abuse, they would not send him home with a PICC line. I attempted to call his sister, Aditi, several times today at [phone] and she did not answer and her mailbox is full so I was unable to leave a message. I do not see how he will be able to get home health without a PCP either. CM will continue to follow and assist with discharge planning/needs. Guide Dog Mobility Instructor: Lisa Beyer DCPIA - Discharge Planning Initial Assessment Updated by [id number]: Lisa Beyer on 09/14/19 11:13 am * Is the patient Alert and Oriented? Yes * How many steps to enter\exit or inside your home? 3/0 * PCP No PCP * Pharmacy [facility] in [facility] * Preadmission Environment Home Alone * ADLs Independent * Equipment None * List name and contact numbers for known caregivers / representatives who currently or will assist patient after discharge: Aditi Alegre - [facility] - [phone] * Verbal permission to speak to the caregivers and representatives has been obtained from the patient. Yes * Community resources currently utilized None * Additional services required to return to the preadmission environment? No * Can the patient safely return to the preadmission environment? Yes * Has this patient been hospitalized within the prior 30 days at any hospital? Yes Coverage Notice Reviewer: [id number] George Beyer Notice Issued Date-Time: 09/14/2019 11:24 Notice Type: Patient Choice Letter Notice Delivered To: Patient Relationship to Patient: Self Bench Technician Name: Delivery Method: HAND - Hand Delivered Melanie Days: Prior Verbal Notification: Recipient Understood Notice: Yes Recipient Signature: Yes Med Rec Note Co-signed by Attending: Coverage Notice Comment[facility] (they denied admission) Last DP export: 09/14/19 2:30 p Patient Name: MARLEY VALLADARES Page [phone] at 1539 All edits/amendments must be made on the electronic document DICTATION DATE: 09/14/19 1539 HEALTHCARE REPRESENTATIVE: KIP 09/14/19 1539 RPT#: [id number] DC DATE: STATUS: ADM IN [facility] [address] [place] [address] END OF REPORT
--- NOTE | 2019-09-14 17:33 | NUR ---
SITTING IN BED EATING DINNER. DENIES NEEDS. WILL CONTINUE TO MONITOR.
[2019-09-15] VITALS: BP 131/69
[2019-09-15 08:11] VITALS: BP 121/72
[2019-09-15 08:41] VITALS: BP 125/72
--- NOTE | 2019-09-15 08:45 | NUR ---
PATIENT IN BED WITH IV INTACT. NO COMPLAINTS OR SIGNS OF DISTRESS. FAMILY AT BEDSIDE. CALLL LIGHT WITHIN REACH.
[2019-09-15 09:34] LABS: HEMATOCRIT 28.5 % (42.0-54.0); HEMOGLOBIN 8.6 g/dL (13.5-17.5); MCH 26.9 pg (26.0-34.0); MCHC 30.2 g/dL (31.0-37.0); MCV 89.1 fL (80.0-100.0); RDW 21.1 % (11.5-14.5)
[2019-09-15 09:39] LABS: PLATELET COUNT 77 10x3/uL (130-400); WBC 5.7 10x3/uL (4.8-10.8)
[2019-09-15 09:55] LABS: ALBUMIN 1.9 g/dL (3.4-5.0); ANION GAP 9.6 mmol/L (8-16); BILIRUBIN - TOTAL 0.99 mg/dL (0.2-1.3); CALCIUM 7.5 mg/dL (8.5-10.1); CARBON DIOXIDE 25.7 mmol/L (21.0-32.0); CREATININE - SERUM 1.2 mg/dL (0.6-1.3); POTASSIUM - SERUM 4.3 mmol/L (3.5-5.1); PROTEIN - SERUM 8.7 g/dL (6.4-8.2)
[2019-09-15 09:57] LABS: LYMPHOCYTES 4 % (15-50); MONOCYTES 2 % (2-11); NEUTROPHILS 94 % (40-80); PLATELET ESTIMATE DECREASED; SCHISTOCYTES OCC; TEAR DROP CELLS OCC
[2019-09-15 09:58] LABS: ROULEAUX OCC
[2019-09-15] MEDS ORDERED: CHRONULAC30 ML PO (11:55)
[2019-09-15] MEDS ORDERED: Nicoderm [PBKC] TRANSDERM (11:55)
[2019-09-15] MEDS ORDERED: FLORAJEN3 CAPS460 MG PO (11:56)
[2019-09-15] MEDS ORDERED: PROTONIX40 MG PO (11:56)
[2019-09-15] MEDS ORDERED: SMZ-TMP DS TABL1 TAB PO (11:56)
--- NOTE | 2019-09-15 13:08 | MORECARE ---
CASE MANAGEMENT DISCHARGE SUMMARY PATIENT: MARLEY VALLADARES UNIT: [id number] ADM DATE: 09/11/19 AGE: 64 : 59 SEX: M ROOM/BED: D.2227 AUTHOR: ROLAND,DOC PHYSICIAN: REFERRING PHYSICIAN: APURVA BAH MD DATE OF SERVICE: 09/15/19 Discharge Plan Patient Name: MARLEY VALLADARES Facility: [facility]:[place] : 1955 Planned Disposition: Jail Facility Anticipated Discharge Date: Discharge Date: Expected LOS: Initial Reviewer: [email or web address] Initial Review Date: 09/11/2019 Generated: 09/15/19 2:08 pm Comments DCP- Discharge Planning Updated by [id number]: Lisa Beyer on 09/15/19 12:[address] I spoke with patient and his sister was on the phone while I was in the room. I informed them both that the doctor has discharged him home on PO Bactrim for 6 weeks. I informed them that I would get his Bactrim for him. I called and spoke with Summer and Bactrim called in, wolf is $21.27 for 84 tabs. Wolf OK'd by Kayleigh Franco. I also informed Kayleigh that patient would need ambulance transfer to [address] [place] [address] in [place] [address]. She states [facility] should be able to bill [place] Medicaid. CM will continue to follow and assist with discharge planning/needs. DCP- Discharge Planning Updated by [id number]: Emilee Tracy on 09/14/19 2:[address] NOVOA IN [place], [place], AT [facility] . PHONE NUMBER [phone]. CM LEFT MESSAGE WITH CONTACT INFORMATION FOR HEAVY LINE TECHNICIAN, LISA PEPITO. AWAITING CALL BACK. CM ADVISED MS BEYER. DCP- Discharge Planning Updated by [id number]: Emilee Tracy on 09/14/19 2:[address] PATIENT WENT TO THE OR FOR ARTHROSCOPIC I&D OF THE RIGHT KNEE WITH WASHING. RETURNED AT 1220. CM TO THE BEDSIDE AT 1430. THE PATIENT GAVE PERMISSION TO PROCEED WITH ASSESSMENT. HE STATES HIS SISTER, ADITI, HAD JUST CALLED. CM CONFIRMED THE NUMBER WHICH HE STATES IS CORRECT ON THE FACE SHEET. GAVE PERMISSION TO SPEAK WITH HER. HE STATED HE HAD NO OTHER FAMILY. WHEN ASK HOW HE CAME TO BE IN [place], STATED HIS SISTER. BUT HAD STATED EARLIER HIS SISTER, ADITI, LIVED IN [place]. HE GAVE ANOTHER NAME, ?? EVANGELINA LAU. NOW STATES SHE LIVES IN [place]. HE WAS NOT A THEREFORE NO VA BENEFITS. HE WISHES TO RETURN TO THE PREVIOUS FACILITY. CM INFORMED HIM THEY DID NOT ACCEPT HIM HE HAS NO BENEFIT/ HAS UTILIZED ALL OF HIS MEDICAID DAYS. HIS ANSWERS ARE SLURRED. HE KEPT DRIFITING OFF DURING THE ASSESSMENT. THE PATIENT WAS ALSO MEDICATED W/ DILAUDID FOR PAIN DURING INTERVIEW. MD NOTE STATES PLAN FOR 6 WEEKS OF IVAB THERAPY. CM WILL NEED TO REVISIT. TELEPHONE CALL TO HIS SISTER, ADITI, AND RECEIVED AN ANSWER. SHE STATES SHE HAD SPOKEN WITH HIM. SHE CONFIRMS HE WAS NOT IN THE SERVICES. SHE STATES HE HAS A PRIMARY MD, DR BUCK, IN [facility]. SHE DOES NOT KNOW HIS NUMBER BUT STATES THE PATIENT HAS HIS CARD. PATIENT UTILIZES [facility] IN [place]. THE SISTER STATES THEY HAVE A HOME IN [place] AND HE BECAME ILL WHILE THEY WERE VISITING. CM TO FOLLOW. DCP- Discharge Planning Updated by [id number]: Lisa Beyer on 09/14/19 10:[address] Patient Name: MARLEY VALLADARES Admission Status: ER Accout number: [id number] Admission Date: 09-11-2019 : 1955 Admission Diagnosis: Attending: APURVA BAH Current LOS: 3 Anticipated DC Date: Planned Disposition: Jail Facility Primary Insurance: [employer] Discharge Planning Comments: CM met with patient to discuss discharge planning/needs. He was transferred from [facility]. He states that he was in [facility] in [facility] for IV antibiotics after leaving the hospital last time and would like to return. He does have an aide that comes on weekend from [facility]. He does not have any equipment at home. I spoke with German at [facility] and German states the patient has [place] Medicaid and does not have any rehab benefits. States that they will be unable to take him back. States the hospital had paid them to take him for 3 weeks for IV antibiotics. States because of his prior history of drug abuse, they would not send him home with a PICC line. I attempted to call his sister, Aditi, several times today at [phone] and she did not answer and her mailbox is full so I was unable to leave a message. I do not see how he will be able to get home health without a PCP either. CM will continue to follow and assist with discharge planning/needs. Development Analyst: Lisa Beyer DCPIA - Discharge Planning Initial Assessment Updated by [email or web address]: Lisa Beyer on 09/14/19 11:13 am * Is the patient Alert and Oriented? Yes * How many steps to enter\exit or inside your home? 3/0 * PCP No PCP * Pharmacy [facility] in [facility] * Preadmission Environment Home Alone * ADLs Independent * Equipment None * List name and contact numbers for known caregivers / representatives who currently or will assist patient after discharge: Aditi Alegre - sister - [phone] * Verbal permission to speak to the caregivers and representatives has been obtained from the patient. Yes * Community resources currently utilized None * Additional services required to return to the preadmission environment? No * Can the patient safely return to the preadmission environment? Yes * Has this patient been hospitalized within the prior 30 days at any hospital? Yes Coverage Notice Reviewer: [id number] - Lisa Beyer Notice Issued Date-Time: 09/14/2019 11:24 Notice Type: Patient Choice Letter Notice Delivered To: Patient Relationship to Patient: Self Brush Filler Hand Name: Delivery Method: HAND - Hand Delivered Melanie Days: Prior Verbal Notification: Recipient Understood Notice: Yes Recipient Signature: Yes Med Rec Note Co-signed by Attending: Coverage Notice Comment: [facility] in [facility] (they denied admission) Last DP export: 09/14/19 2:39 p Patient Name: MARLEY VALLADARES Page 32509 at 1308 All edits/amendments must be made on the electronic document DICTATION DATE: 09/15/19 1308 CANOE INSPECTOR FINAL: KIP 09/15/19 1308 RPT#: [id number] DC DATE: STATUS: ADM IN [facility] [address] [place] [address] END OF REPORT
[2019-09-15 13:41] VITALS: BP 111/70
--- NOTE | 2019-09-15 14:28 | MORECARE ---
CASE MANAGEMENT DISCHARGE SUMMARY PATIENT: MARLEY VALLADARES UNIT: [id number] ADM DATE: 09/11/19 AGE: 64 : 59 SEX: M ROOM/BED: D.2227 AUTHOR: ROLAND,DOC PHYSICIAN: REFERRING PHYSICIAN: APURVA BHA MD DATE OF SERVICE: 09/15/19 Discharge Plan Patient Name: MARLEY VALLADARES Facility: [facility]:[place] : 1955 Planned Disposition: Half-Way Facility Anticipated Discharge Date: Discharge Date: Expected LOS: Initial Reviewer: [id number] Initial Review Date: 09/11/2019 Generated: 09/15/19 3:27 pm Comments DCP- Discharge Planning Updated by [id number]: Lisa Beyer on 09/15/19 1:[address] Bactrim received from [facility] pharmacy and given to Amy (medicare coordinator). Amy to call ambulance for transfer home. CM will continue to follow and assist with discharge planning/needs. DCP- Discharge Planning Updated by [email or web address]: Lisa Beyer on 09/15/19 12:[address] I spoke with patient and his sister was on the phone while I was in the room. I informed them both that the doctor has discharged him home on PO Bactrim for 6 weeks. I informed them that I would get his Bactrim for him. I called and spoke with Summer and Bactrim called in, wolf is $21.27 for 84 tabs. Wolf OK'd by Kayleigh Franco. I also informed Kayleigh that patient would need ambulance transfer to [address] [place] [address] in [place] [id number]. She states [facility] should be able to bill [place] Medicaid. CM will continue to follow and assist with discharge planning/needs. DCP- Discharge Planning Updated by [email or web address]: Emilee Tracy on 09/14/19 2:[address] NOVOA IN [place], [place], AT [facility] . PHONE NUMBER [phone]. CM LEFT MESSAGE WITH CONTACT INFORMATION FOR [employer] ARTILLERY CREWMEMBER, LISA BEYER. AWAITING CALL BACK. CM ADVISED MS BEYER. DCP- Discharge Planning Updated by [id number]: Emilee Tracy on 09/14/19 2:[address] PATIENT WENT TO THE OR FOR ARTHROSCOPIC I&D OF THE RIGHT KNEE WITH WASHING. RETURNED AT 1220. CM TO THE BEDSIDE AT 1430. THE PATIENT GAVE PERMISSION TO PROCEED WITH ASSESSMENT. HE STATES HIS SISTER, PRERNA, HAD JUST CALLED. CM CONFIRMED THE NUMBER WHICH HE STATES IS CORRECT ON THE FACE SHEET. GAVE PERMISSION TO SPEAK WITH HER. HE STATED HE HAD NO OTHER FAMILY. WHEN ASK HOW HE CAME TO BE IN [place], STATED HIS SISTER. BUT HAD STATED EARLIER HIS SISTER, PRERNA, LIVED IN [place]. HE GAVE ANOTHER NAME, ?? EVANGELINA LAU. NOW STATES SHE LIVES IN [place]. HE WAS NOT A THEREFORE NO VA BENEFITS. HE WISHES TO RETURN TO THE PREVIOUS FACILITY. CM INFORMED HIM THEY DID NOT ACCEPT HIM HE HAS NO BENEFIT/ HAS UTILIZED ALL OF HIS MEDICAID DAYS. HIS ANSWERS ARE SLURRED. HE KEPT DRIFITING OFF DURING THE ASSESSMENT. THE PATIENT WAS ALSO MEDICATED W/ DILAUDID FOR PAIN DURING INTERVIEW. MD NOTE STATES PLAN FOR 6 WEEKS OF IVAB THERAPY. CM WILL NEED TO REVISIT. TELEPHONE CALL TO HIS SISTER, PRERNA, AND RECEIVED AN ANSWER. SHE STATES SHE HAD SPOKEN WITH HIM. SHE CONFIRMS HE WAS NOT IN THE SERVICES. SHE STATES HE HAS A PRIMARY MD, DR BUCK, IN [facility]. SHE DOES NOT KNOW HIS NUMBER BUT STATES THE PATIENT HAS HIS CARD. PATIENT UTILIZES [employer] AND [employer] IN [place]. THE SISTER STATES THEY HAVE A HOME IN [place] AND HE BECAME ILL WHILE THEY WERE VISITING. CM TO FOLLOW. DCP- Discharge Planning Updated by [email or web address]: Lisa Zamarripachanning on 09/14/19 10:[address] Patient Name: MARLEY VALLADARES Admission Status: ER Accout number: [id number] Admission Date: 09-11-2019 : 1955 Admission Diagnosis: Attending: APURVA BAH Current LOS: 3 Anticipated DC Date: Planned Disposition: Half-Way Facility Primary Insurance: [facility] Discharge Planning Comments: CM met with patient to discuss discharge planning/needs. He was transferred from [facility] ED. He states that he was in [facility] in [facility] for IV antibiotics after leaving the hospital last time and would like to return. He does have an aide that comes on weekend from [facility]. He does not have any equipment at home. I spoke with German at [facility] and German states the patient has [place] Medicaid and does not have any rehab benefits. States that they will be unable to take him back. States the hospital had paid them to take him for 3 weeks for IV antibiotics. States because of his prior history of drug abuse, they would not send him home with a PICC line. I attempted to call his sister, Prerna, several times today at [phone] and she did not answer and her mailbox is full so I was unable to leave a message. I do not see how he will be able to get home health without a PCP either. CM will continue to follow and assist with discharge planning/needs. Tube Cleaner: Lisa Beyer DCPIA - Discharge Planning Initial Assessment Updated by [email or web address]: Lisa Beyer on 09/14/19 11:13 am * Is the patient Alert and Oriented? Yes * How many steps to enter\exit or inside your home? 3/0 * PCP No PCP * Pharmacy [facility] in [facility] * Preadmission Environment Home Alone * ADLs Independent * Equipment None * List name and contact numbers for known caregivers / representatives who currently or will assist patient after discharge: Prerna Alegre - sister - [phone] * Verbal permission to speak to the caregivers and representatives has been obtained from the patient. Yes * Community resources currently utilized None * Additional services required to return to the preadmission environment? No * Can the patient safely return to the preadmission environment? Yes * Has this patient been hospitalized within the prior 30 days at any hospital? Yes Coverage Notice Reviewer: [id number] - Lisa Beyer Notice Issued Date-Time: 09/14/2019 11:24 Notice Type: Patient Choice Letter Notice Delivered To: Patient Relationship to Patient: Self Portfolio Mgr Name: Delivery Method: HAND - Hand Delivered Melanie Days: Prior Verbal Notification: Recipient Understood Notice: Yes Recipient Signature: Yes Med Rec Note Co-signed by Attending: Coverage Notice Comment: [facility] in [facility] (they denied admission) Last DP export: 09/15/19 12:08 p Patient Name: MARLEY VALLADARES Page [id number] at 1428 All edits/amendments must be made on the electronic document DICTATION DATE: 09/15/191426 STRIKE PLANNING APPLICATIONS: DM 09/15/191426 RPT#: [id number] DC DATE: STATUS: ADM IN [facility] [address] [place] [address] END OF REPORT
[2019-09-15] MEDS ORDERED: HYDROCODON-ACE1 EA10 PO (16:05)
--- NOTE | 2019-09-15 16:53 | MORECARE ---
CASE MANAGEMENT DISCHARGE SUMMARY PATIENT: MARLEY VALLADARES UNIT: [id number] ADM DATE: 09/11/19 AGE: 64 : 59 SEX: M ROOM/BED: D.2227 AUTHOR: ROLAND,DOC PHYSICIAN: REFERRING PHYSICIAN: APURVA BAH MD DATE OF SERVICE: 09/15/19 Discharge Plan Patient Name: MARLEY VALLADARES Facility: [facility]:[place] : 1955 Planned Disposition: Alf Facility Anticipated Discharge Date: Discharge Date: Expected LOS: Initial Reviewer: [id number] Initial Review Date: 09/11/2019 Generated: 09/15/19 5:53 pm Comments DCP- Discharge Planning Updated by [email or web address]: Lisa Beyer on 09/15/19 3:[address] Ambulance is on it's way to pick him up to take him to his sister's home. Tessa has his antibiotic and will give it to the ambulance service to take home with him. I called his sister and informed her that the ambulance will be here shortly to bring him to her house. She states that he has all his home medications at his house to take. I informed her of the addition of the antibiotic. I also informed her he would need to get the pain prescription filled on his own, she voiced understanding. She states he has a walker at her house as well. DCP- Discharge Planning Updated by [id number]: Lisa Beyer on 09/15/19 1:[address] Bactrim received from [facility] pharmacy and given to Amy (practice coordinator). Amy to call ambulance for transfer home. CM will continue to follow and assist with discharge planning/needs. DCP- Discharge Planning Updated by [email or web address]: Lisa Beyer on 09/15/19 12:[address] I spoke with patient and his sister was on the phone while I was in the room. I informed them both that the doctor has discharged him home on PO Bactrim for 6 weeks. I informed them that I would get his Bactrim for him. I called and spoke with Summer and Bactrim called in, wolf is $21.27 for 84 tabs. Wolf OK'd by Kayleigh Franco. I also informed Kayleigh that patient would need ambulance transfer to [address] [place] [address] [place] [address]. She states [facility] should be able to bill [place] Medicaid. CM will continue to follow and assist with discharge planning/needs. DCP- Discharge Planning Updated by [email or web address]: Emilee Tarcy on 09/14/19 2:[address] NOVOA IN [place], [place], AT [facility] . PHONE NUMBER [phone]. CM LEFT MESSAGE WITH CONTACT INFORMATION FOR PET TRAINER, LISA BEYER. AWAITING CALL BACK. CM ADVISED MS BEYER. DCP- Discharge Planning Updated by [id number]: Emilee Tracy on 09/14/19 2:[address] PATIENT WENT TO THE OR FOR ARTHROSCOPIC I&D OF THE RIGHT KNEE WITH WASHING. RETURNED AT 1220. CM TO THE BEDSIDE AT 1430. THE PATIENT GAVE PERMISSION TO PROCEED WITH ASSESSMENT. HE STATES HIS SISTER, ADITI, HAD JUST CALLED. CM CONFIRMED THE NUMBER WHICH HE STATES IS CORRECT ON THE FACE SHEET. GAVE PERMISSION TO SPEAK WITH HER. HE STATED HE HAD NO OTHER FAMILY. WHEN ASK HOW HE CAME TO BE IN [place], STATED HIS SISTER. BUT HAD STATED EARLIER HIS SISTER, ADITI, LIVED IN [place]. HE GAVE ANOTHER NAME, ?? EVANGELINA LAU. NOW STATES SHE LIVES IN [place]. HE WAS NOT A THEREFORE NO VA BENEFITS. HE WISHES TO RETURN TO THE PREVIOUS FACILITY. CM INFORMED HIM THEY DID NOT ACCEPT HIM HE HAS NO BENEFIT/ HAS UTILIZED ALL OF HIS MEDICAID DAYS. HIS ANSWERS ARE SLURRED. HE KEPT DRIFITING OFF DURING THE ASSESSMENT. THE PATIENT WAS ALSO MEDICATED W/ DILAUDID FOR PAIN DURING INTERVIEW. MD NOTE STATES PLAN FOR 6 WEEKS OF IVAB THERAPY. CM WILL NEED TO REVISIT. TELEPHONE CALL TO HIS SISTER, ADITI, AND RECEIVED AN ANSWER. SHE STATES SHE HAD SPOKEN WITH HIM. SHE CONFIRMS HE WAS NOT IN THE SERVICES. SHE STATES HE HAS A PRIMARY MD, DR BUCK, IN [facility]. SHE DOES NOT KNOW HIS NUMBER BUT STATES THE PATIENT HAS HIS CARD. PATIENT UTILIZES [employer] [facility] [employer] IN [place]. THE SISTER STATES THEY HAVE A HOME IN [place] AND HE BECAME ILL WHILE THEY WERE VISITING. CM TO FOLLOW. DCP- Discharge Planning Updated by [email or web address]: Lisa Beyer on 09/14/19 10:[address] Patient Name: MARLEY VALLADARES Admission Status: ER Accout number: [id number] Admission Date: 09-11-2019 : 1955 Admission Diagnosis: Attending: APURVA BAH Current LOS: 3 Anticipated DC Date: Planned Disposition: Alf Facility Primary Insurance: [facility] Discharge Planning Comments: CM met with patient to discuss discharge planning/needs. He was transferred from [facility]. He states that [facility] for IV antibiotics after leaving the hospital last time and would like to return. He does have an aide that comes on weekend from [facility]. He does not have any equipment at home. I spoke with German at [facility] and German states the patient has [place] Medicaid and does not have any rehab benefits. States that they will be unable to take him back. States the hospital had paid them to take him for 3 weeks for IV antibiotics. States because of his prior history of drug abuse, they would not send him home with a PICC line. I attempted to call his sister, Aidti, several times today at [phone] and she did not answer and her mailbox is full so I was unable to leave a message. I do not see how he will be able to get home health without a PCP either. CM will continue to follow and assist with discharge planning/needs. Stitcher Around: Lisa Beyer DCPIA - Discharge Planning Initial Assessment Updated by [id number]: Lisa Beyer on 09/14/19 11:13 am * Is the patient Alert and Oriented? Yes * How many steps to enter\exit or inside your home? 3/0 * PCP No PCP * Pharmacy [facility] in [facility] * Preadmission Environment Home Alone * ADLs Independent * Equipment None * List name and contact numbers for known caregivers / representatives who currently or will assist patient after discharge: Aditi Alegre - sister - [phone] * Verbal permission to speak to the caregivers and representatives has been obtained from the patient. Yes * Community resources currently utilized None * Additional services required to return to the preadmission environment? No * Can the patient safely return to the preadmission environment? Yes * Has this patient been hospitalized within the prior 30 days at any hospital? Yes Coverage Notice Reviewer: [id number] - Lisa Orrell Notice Issued Date-Time: 09/14/2019 11:24 Notice Type: Patient Choice Letter Notice Delivered To: Patient Relationship to Patient: Self Leg Assembler Name: Delivery Method: HAND - Hand Delivered Melanie Days: Prior Verbal Notification: Recipient Understood Notice: Yes Recipient Signature: Yes Med Rec Note Co-signed by Attending: Coverage Notice Comment: [facility] in [facility] (they denied admission) Last DP export: 09/15/19 1:28 p Patient Name: MARLEY VALLADARES Page [id number] at 1653 All edits/amendments must be made on the electronic document DICTATION DATE: 09/15/191652 OCEAN EXPORT ACCOUNT MANAGER: KIP 09/15/191652 RPT#: [id number] DC DATE: STATUS: ADM IN [facility] [address] [place] [address] END OF REPORT
--- NOTE | 2019-09-15 17:00 | NUR ---
PATIENT IN BED WITH NO COMPLAINTS. IV REMOVED WITH CATH TIP INTACT. PATIENT O BE DISCHARGED. DRESSING TO KNEE CDI. AWAITING AMBULANCE FOR DC.
--- NOTE | 2019-09-15 18:20 | NUR ---
AMBULANCE HERE TO TAKE PATIENT TO [facility]. DC INSTRUCTIONS, PRESCRIPTION, AND ANTIBIOTIC GIVEN TO EMS. PATIENT VERBALIZED UNDERSTANDING. ASSISTED TO STRETCHER AND ESCORTED OUT OF HOSPITAL BY EMS.
--- NOTE | 2019-09-18 08:42 | OP ---
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 PROCEDURE: Arthroscopic debridement to include synovectomy and debridement of the entire right knee. SURGEON: Katlyn West MD ANESTHESIA: General. INTRAOPERATIVE COMPLICATIONS: None. SUMMARY OF PATHOLOGIC FINDINGS: The patient had severe posttraumatic attritional changes of the medial compartment as well as patellofemoral compartment. The patient was also found to have substantial synovitis. Cultures were taken to include both the traditional cultures and DNA cultures. OPERATIVE SUMMARY IN DETAIL: After obtaining the appropriate preoperative orthopedic surgery consent as well as anesthetic consultation, evaluation and clearance, the patient was brought to the operating room and placed on the operating table in supine position. After adequate general laryngeal mask airway was administered, tourniquet was placed about the proximal aspect of the right lower extremity. Note, it was not used during the case. Right lower extremity was then prepped and draped in routine sterile fashion. Routine inferolateral portal was established followed by superomedial portal and inferomedial portal. Before dilutional fact was created with any saline, cultures were taken that again include both traditional and nontraditional cultures. At this point, arthroscopy was established in the knee and diagnostic arthroscopy did reveal the above finding. Serial and sequential takedown of the entire synovium both superiorly, medially, laterally as well as gentle debridement of the chondral surfaces was done with a resector. Approximately 12 liters of fluid was lavaged through the knee. Then, the arthroscopy portals were closed in routine interrupted fashion using 4-0 Prolene. Sterile dressings were applied. The patient was awakened and taken to the recovery room in stable condition. All final needle and sponge counts were correct. TRANSINT:[id number] Voice Confirmation ID: [id number] DOCUMENT ID: [id number] KATLYN WEST MD at 0842 CC: [id number] DICTATION DATE: 09/14/19 1136 CORPORATE DRIVER: 09/14/19 1747 DIS IN 09/15/19 [facility] [address] [place] [address]
--- NOTE | 2019-09-18 09:23 | MORECARE ---
CASE MANAGEMENT DISCHARGE SUMMARY PATIENT: MARLEY VALLADARES UNIT: [id number] ADM DATE: 09/11/19 AGE: 64 : 59 SEX: M ROOM/BED: D.2227 AUTHOR: ROLAND,DOC PHYSICIAN: REFERRING PHYSICIAN: APURVA BAH MD DATE OF SERVICE: 09/18/19 Discharge Plan Patient Name: MARLEY VALLADARES Facility: [facility]:[place] : 1955 Planned Disposition: Mcfp Facility Anticipated Discharge Date: Discharge Date: 09/15/2019 Expected LOS: Initial Reviewer: [id number] Initial Review Date: 09/11/2019 Generated: 09/18/19 10:23 am Comments DCP- Discharge Planning Updated by [email or web address]: Jamila Beyer on 09/15/19 3:[address] Ambulance is on it's way to pick him up to take him to his sister's home. Tessa has his antibiotic and will give it to the ambulance service to take home with him. I called his sister and informed her that the ambulance will be here shortly to bring him to her house. She states that he has all his home medications at his house to take. I informed her of the addition of the antibiotic. I also informed her he would need to get the pain prescription filled on his own, she voiced understanding. She states he has a walker at her house as well. DCP- Discharge Planning Updated by [email or web address]: Jamila Zamarripachanning on 09/15/19 1:[address] Bactrim received from [facility] pharmacy and given to Amy (measurement coordinator). Amy to call ambulance for transfer home. CM will continue to follow and assist with discharge planning/needs. DCP- Discharge Planning Updated by [email or web address]: Jamila Beyer on 09/15/19 12:[address] I spoke with patient and his sister was on the phone while I was in the room. I informed them both that the doctor has discharged him home on PO Bactrim for 6 weeks. I informed them that I would get his Bactrim for him. I called and spoke with Summer and Bactrim called in, wolf is $21.27 for 84 tabs. Wolf OK'd by Kayleigh Franco. I also informed Kayleigh that patient would need ambulance transfer to [address] [place] [address] [place] [address]. She states [facility] should be able to bill [place] Medicaid. CM will continue to follow and assist with discharge planning/needs. DCP- Discharge Planning Updated by [id number]: Emilee Demarcus on 09/14/19 2:[address] NOVOA IN [place], [place], AT [facility] . PHONE NUMBER [phone]. CM LEFT MESSAGE WITH CONTACT INFORMATION FOR SENIOR TRAINER, JAMILA BEYER. AWAITING CALL BACK. CM ADVISED MS BEYER. DCP- Discharge Planning Updated by [id number]: Emilee Johnsons on 09/14/19 2:[address] PATIENT WENT TO THE OR FOR ARTHROSCOPIC I&D OF THE RIGHT KNEE WITH WASHING. RETURNED AT 1220. CM TO THE BEDSIDE AT 1430. THE PATIENT GAVE PERMISSION TO PROCEED WITH ASSESSMENT. HE STATES HIS SISTER, ADITI, HAD JUST CALLED. CM CONFIRMED THE NUMBER WHICH HE STATES IS CORRECT ON THE FACE SHEET. GAVE PERMISSION TO SPEAK WITH HER. HE STATED HE HAD NO OTHER FAMILY. WHEN ASK HOW HE CAME TO BE IN [place], STATED HIS SISTER. BUT HAD STATED EARLIER HIS SISTER, ADITI, LIVED IN [place]. HE GAVE ANOTHER NAME, ?? EVANGELINA BLANQUITA NAVARRO. NOW STATES SHE LIVES IN [place]. HE WAS NOT A THEREFORE NO VA BENEFITS. HE WISHES TO RETURN TO THE PREVIOUS FACILITY. CM INFORMED HIM THEY DID NOT ACCEPT HIM HE HAS NO BENEFIT/ HAS UTILIZED ALL OF HIS MEDICAID DAYS. HIS ANSWERS ARE SLURRED. HE KEPT DRIFITING OFF DURING THE ASSESSMENT. THE PATIENT WAS ALSO MEDICATED W/ DILAUDID FOR PAIN DURING INTERVIEW. MD NOTE STATES PLAN FOR 6 WEEKS OF IVAB THERAPY. CM WILL NEED TO REVISIT. TELEPHONE CALL TO HIS SISTER, ADITI, AND RECEIVED AN ANSWER. SHE STATES SHE HAD SPOKEN WITH HIM. SHE CONFIRMS HE WAS NOT IN THE SERVICES. SHE STATES HE HAS A PRIMARY MD, DR BUCK, IN [facility]. SHE DOES NOT KNOW HIS NUMBER BUT STATES THE PATIENT HAS HIS CARD. PATIENT UTILIZES [employer] AND [employer] IN [place]. THE SISTER STATES THEY HAVE A HOME IN [place] AND HE BECAME ILL WHILE THEY WERE VISITING. CM TO FOLLOW. DCP- Discharge Planning Updated by [id number]: Jamila Beyer on 09/14/19 10:[address] Patient Name: MARLEY VALLADARES Admission Status: ER Accout number: [id number] Admission Date: 09-11-2019 : 1955 Admission Diagnosis: Attending: APURVA BAH Current LOS: 3 Anticipated DC Date: Planned Disposition: Mcfp Facility Primary Insurance: [facility] Discharge Planning Comments: CM met with patient to discuss discharge planning/needs. He was transferred from [facility]. He states that [facility] for IV antibiotics after leaving the hospital last time and would like to return. He does have an aide that comes on weekend from [facility]. He does not have any equipment at home. I spoke with German at [facility] and German states the patient has [place] Medicaid and does not have any rehab benefits. States that they will be unable to take him back. States the hospital had paid them to take him for 3 weeks for IV antibiotics. States because of his prior history of drug abuse, they would not send him home with a PICC line. I attempted to call his sister, Aditi, several times today at [phone] and she did not answer and her mailbox is full so I was unable to leave a message. I do not see how he will be able to get home health without a PCP either. CM will continue to follow and assist with discharge planning/needs. [facility] Nurse: Jamila Beyer [facility] - Discharge Planning Initial Assessment Updated by [id number]: Jamila Beyer on 09/14/19 11:13 am * Is the patient Alert and Oriented? Yes * How many steps to enter\exit or inside your home? 3/0 * PCP No PCP * Pharmacy [facility] in [facility] * Preadmission Environment Home Alone * ADLs Independent * Equipment None * List name and contact numbers for known caregivers / representatives who currently or will assist patient after discharge: Aditi Alegre - sister - [phone] * Verbal permission to speak to the caregivers and representatives has been obtained from the patient. Yes * Community resources currently utilized None * Additional services required to return to the preadmission environment? No * Can the patient safely return to the preadmission environment? Yes * Has this patient been hospitalized within the prior 30 days at any hospital? Yes Coverage Notice Reviewer: [id number] - Jamila Beyer Notice Issued Date-Time: 09/14/2019 11:24 Notice Type: Patient Choice Letter Notice Delivered To: Patient Relationship to Patient: Self Digital Media Associate Name: Delivery Method: HAND - Hand Delivered Melanie Days: Prior Verbal Notification: Recipient Understood Notice: Yes Recipient Signature: Yes Med Rec Note Co-signed by Attending: Coverage Notice Comment: [facility] in [facility] (they denied admission) Last DP export: 09/15/19 3:53 p Patient Name: MARLEY VALLADARES Page [id number] at 0923 All edits/amendments must be made on the electronic document DICTATION DATE: 09/18/19922 DAIRY TECHNICIAN: KIP 09/18/19922 RPT#: [id number] DC DATE:09/15/19 STATUS: DIS IN [facility] [address] [place] [address] END OF REPORT
== END 2019-09-15 18:22 | disposition home or self-care (01) | DRG 485 ==
LOC: D.ER 15:58 → D.MS 16:31
PROVIDERS: Family Medicine; Internal Medicine Hematology & Oncology; Orthopaedic Surgery; ADMIT Internal Medicine Nephrology; ATTEND Internal Medicine Nephrology
PROC: 0SBC4ZZ Excision of Right Knee Joint, Percutaneous Endoscopic Approach (ICD-10-PCS; principal; 2019-09-14 12:15)
DX: M00.9 Pyogenic arthritis, unspecified (principal); E43 Unspecified severe protein-calorie malnutrition; D61.818 Other pancytopenia; F17.203 Nicotine dependence unspecified, with withdrawal; D62 Acute posthemorrhagic anemia; Z91.14 Patient's other noncompliance with medication regimen; E83.42 Hypomagnesemia; B19.20 Unspecified viral hepatitis C without hepatic coma